=== PATIENT | male | born 1955 | race Caucasian/White ===

== ENCOUNTER 2021-10-09 01:02 | Inpatient (IN) ==
[2021-10-09] MEDS ORDERED: Lactated Ringers 1000 ml BAG 1,000 ML IV ONE (01:30)
[2021-10-09 01:43] LABS: Hematocrit 40 % (42-52); Hemoglobin 13.5 g/dL (14.0-18.0); Mean Corpuscular HGB Conc 34 g/dL (31-36); Mean Corpuscular Hemoglobin 29 pg (27-31); Mean Corpuscular Volume 86 fL (80-94); Mean Platelet Volume 7.7 fL (7.4-10.4); Platelet Count 268 10^3/uL (150-450); Red Blood Count 4.65 10^6 /uL (4.18-5.48); Red Cell Distribution Width 14 % (10-15); White Blood Count 19.6 10^3/uL (3.5-10.8)
[2021-10-09 01:49] LABS: ABS Basophils 0.1 10^3/ul (0-0.2); ABS Lymphocytes 0.5 10^3/ul (1.0-4.8); ABS Monocytes 1.6 10^3/ul (0-0.8); ABS Neutrophils 17.5 10^3/ul (1.5-7.7); Eosinophil % 0.1 %; Lymphocyte % 2.6 %
[2021-10-09 02:21] LABS: Albumin 3.4 g/dL (3.2-5.2); Albumin/Globulin Ratio 1.3 (1-3); Calcium 9.2 mg/dL (8.6-10.3); Globulin 2.7 g/dL (2-4); Magnesium 2.4 mg/dL (1.9-2.7); Total Bilirubin 1.1 mg/dL (0.2-1.0); Total Protein 6.1 g/dL (6.4-8.9)
[2021-10-09 04:09] LABS: High Sensitivity Troponin 1 Hr 8 pg/mL (<20)
[2021-10-09 04:54] LABS: Urine Appearance Cloudy; Urine Bilirubin Negative (Negative); Urine Blood 3+ (Negative); Urine Color Yellow; Urine Glucose Negative (Negative); Urine Ketones Negative (Negative); Urine Nitrite Negative (Negative); Urine Protein 1+(30 mg/dL) (Negative); Urine Urobilinogen Negative (Negative)
[2021-10-09 04:58] LABS: Urine Bacteria 1+ (Absent); Urine Red Blood Cell 3+(>10/hpf) (Absent); Urine White Blood Cell 2+(11-20/hpf) (Absent)
[2021-10-09] MEDS ORDERED: Levofloxacin 750 MG IVPREMIX 750 MG/150 ML BAG IVPB ONE (05:08)
[2021-10-09] MEDS ORDERED: Iohexol 300 (CONTRAST) 10 ML SDV IV ONE (12:11)
[2021-10-09] MEDS ORDERED: cefTRIAXone 1 gm/50 mL D5W 1 GM/50 ML BAG IV ONE (18:30)
[2021-10-09] MEDS: NS 0.9% 1000 ml BAG 1,000 ML IV SCH (20:36)
[2021-10-10] MEDS: NS 0.9% 1000 ml BAG 1,000 ML IV SCH ×2 (03:59→23:18)
[2021-10-10 06:31] LABS: ABS Basophils 0.1 10^3/ul (0-0.2); ABS Eosinophils 0.1 10^3/ul (0-0.6); ABS Lymphocytes 1.2 10^3/ul (1.0-4.8); ABS Monocytes 1.2 10^3/ul (0-0.8); ABS Neutrophils 10.2 10^3/ul (1.5-7.7); Eosinophil % 0.7 %; Hematocrit 36 % (42-52); Hemoglobin 12.2 g/dL (14.0-18.0); Lymphocyte % 9.3 %; Mean Corpuscular HGB Conc 34 g/dL (31-36); Mean Corpuscular Hemoglobin 30 pg (27-31); Mean Corpuscular Volume 88 fL (80-94); Mean Platelet Volume 7.8 fL (7.4-10.4); Platelet Count 253 10^3/uL (150-450); Red Blood Count 4.13 10^6 /uL (4.18-5.48); Red Cell Distribution Width 14 % (10-15); White Blood Count 12.7 10^3/uL (3.5-10.8)
[2021-10-10 07:13] LABS: Calcium 8.4 mg/dL (8.6-10.3); Potassium 4.2 mmol/L (3.5-5.0)
[2021-10-10 15:02] LABS: TSH Ultra Thyroid Stim Horm 0.49 mcIU/mL (0.34-5.60)
[2021-10-10] MEDS: cefTRIAXone 1 gm/50 mL D5W 1 GM/50 ML BAG IV SCH (20:10)
[2021-10-11 05:44] LABS: ABS Basophils 0.1 10^3/ul (0-0.2); ABS Eosinophils 0.2 10^3/ul (0-0.6); ABS Lymphocytes 1.2 10^3/ul (1.0-4.8); ABS Monocytes 0.9 10^3/ul (0-0.8); ABS Neutrophils 7.9 10^3/ul (1.5-7.7); Hematocrit 30 % (42-52); Hemoglobin 10.3 g/dL (14.0-18.0); Lymphocyte % 11.4 %; Mean Corpuscular HGB Conc 34 g/dL (31-36); Mean Corpuscular Hemoglobin 30 pg (27-31); Mean Corpuscular Volume 88 fL (80-94); Mean Platelet Volume 7.8 fL (7.4-10.4); Platelet Count 224 10^3/uL (150-450); Red Blood Count 3.43 10^6 /uL (4.18-5.48); Red Cell Distribution Width 14 % (10-15); White Blood Count 10.3 10^3/uL (3.5-10.8)
[2021-10-11] MEDS: NS 0.9% 1000 ml BAG 1,000 ML IV SCH (05:55)
[2021-10-11 06:19] LABS: Calcium 7.9 mg/dL (8.6-10.3); Potassium 3.7 mmol/L (3.5-5.0); eGFR CKD-EPI 103.3 (>60)
[2021-10-11 12:25] LABS: Albumin 2.5 g/dL (3.2-5.2); Albumin/Globulin Ratio 1.3 (1-3); Total Bilirubin 0.5 mg/dL (0.2-1.0); Total Protein 4.5 g/dL (6.4-8.9)
[2021-10-11] MEDS ORDERED: Perflutren Lipid Microsphere 3 ML VIAL ONE (14:32)
[2021-10-11 18:18] LABS: Hematocrit 31 % (42-52)
[2021-10-11] MEDS: cefTRIAXone 1 gm/50 mL D5W 1 GM/50 ML BAG IV SCH (20:00)
[2021-10-12 07:03] LABS: ABS Basophils 0.1 10^3/ul (0-0.2); ABS Eosinophils 0.2 10^3/ul (0-0.6); ABS Lymphocytes 1.1 10^3/ul (1.0-4.8); ABS Monocytes 0.8 10^3/ul (0-0.8); ABS Neutrophils 7.5 10^3/ul (1.5-7.7); Eosinophil % 1.9 %; Hematocrit 29 % (42-52); Lymphocyte % 11.9 %; Mean Corpuscular HGB Conc 35 g/dL (31-36); Mean Corpuscular Hemoglobin 30 pg (27-31); Mean Corpuscular Volume 87 fL (80-94); Nucleated Red Blood Cells % 0.1; Platelet Count 217 10^3/uL (150-450); Red Blood Count 3.34 10^6 /uL (4.18-5.48); Red Cell Distribution Width 13 % (10-15); White Blood Count 9.7 10^3/uL (3.5-10.8)
[2021-10-12 07:32] LABS: Calcium 7.9 mg/dL (8.6-10.3); Magnesium 1.7 mg/dL (1.9-2.7); Potassium 3.7 mmol/L (3.5-5.0); eGFR CKD-EPI 111.9 (>60)
[2021-10-12 07:49] LABS: Ferritin 319.2 ng/mL (24-336)
[2021-10-12] MEDS: Calcium/Vitamin D TAB 250/125 TAB PO SCH ×2 (09:37→21:33)
[2021-10-12 10:05] LABS: PSA Screening Total 51.286 ng/mL (0-4.000)
[2021-10-12 10:47] LABS: C Reactive Protein 8.95 mg/L (<8.01)
[2021-10-12 10:47] LABS: C Reactive Protein 42.13 mg/L (<8.01)
[2021-10-12 12:31] LABS: Rapid COVID-19 Molecular Undetected (Undetected)
[2021-10-13 04:54] LABS: Anaplasma phagocytophilum Negative (Negative); B. miyamotoi PCR, B Negative (Negative); Babesia divergens/MO-1 Negative (Negative); Babesia ducani Negative (Negative); Ehrlichia chaffeensis Negative (Negative); Ehrlichia ewingii/canis Negative (Negative); Ehrlichia muris eauclairensis Negative (Negative)
[2021-10-13 06:29] VITALS: BP 115/78
[2021-10-13] MEDS: Calcium/Vitamin D TAB 250/125 TAB PO SCH (08:55)
== END 2021-10-13 14:00 | DRG 466 ==
LOC: ED 01:02 → EDHOLD 13:07 → SUATTDRO 13:07 → MED 18:17
PROVIDERS: ADMIT Internal Medicine; ATTEND Internal Medicine

== ENCOUNTER 2021-10-15 17:48 | Inpatient (IN) ==
[2021-10-15 19:01] LABS: Hematocrit 28 % (42-52); Hemoglobin 9.3 g/dL (14.0-18.0); Mean Corpuscular HGB Conc 33 g/dL (31-36); Mean Corpuscular Hemoglobin 29 pg (27-31); Mean Corpuscular Volume 87 fL (80-94); Mean Platelet Volume 7.5 fL (7.4-10.4); Platelet Count 348 10^3/uL (150-450); Red Blood Count 3.23 10^6 /uL (4.18-5.48); Red Cell Distribution Width 14 % (10-15); White Blood Count 17.6 10^3/uL (3.5-10.8)
[2021-10-15 19:09] LABS: ABS Eosinophils 0.3 10^3/ul (0-0.6); ABS Lymphocytes 1.5 10^3/ul (1.0-4.8); ABS Monocytes 1.1 10^3/ul (0-0.8); ABS Neutrophils 14.8 10^3/ul (1.5-7.7); Eosinophil % 1.6 %; Lymphocyte % 8.3 %
[2021-10-15 19:40] LABS: Albumin 3.2 g/dL (3.2-5.2); Albumin/Globulin Ratio 1.6 (1-3); Calcium 8.5 mg/dL (8.6-10.3); Potassium 4.2 mmol/L (3.5-5.0); Total Bilirubin 0.6 mg/dL (0.2-1.0); Total Protein 5.2 g/dL (6.4-8.9); eGFR CKD-EPI 99.2 (>60)
[2021-10-15 20:20] LABS: Urine Appearance Clear; Urine Bilirubin Negative (Negative); Urine Blood 2+ (Negative); Urine Color Yellow; Urine Glucose Negative (Negative); Urine Ketones Negative (Negative); Urine Nitrite Negative (Negative); Urine Protein Negative (Negative); Urine Specific Gravity 1.023 (1.002-1.030); Urine Urobilinogen Negative (Negative)
[2021-10-15 20:27] LABS: Urine Bacteria Absent (Absent); Urine Red Blood Cell 1+(3-5/hpf) (Absent); Urine White Blood Cell Absent (Absent)
[2021-10-15] MEDS ORDERED: Iohexol 350 (CONTRAST) 500 ML MDV IV ONE (20:58)
[2021-10-16] MEDS: NS 0.9% 1000 ml BAG 1,000 ML IV SCH ×2 (00:39→17:31)
[2021-10-16] MEDS ORDERED: Pantoprazole VIAL 40 MG VIAL IV ONE (02:48)
[2021-10-16 05:25] LABS: ABS Basophils 0.1 10^3/ul (0-0.2); ABS Eosinophils 0.3 10^3/ul (0-0.6); ABS Lymphocytes 1.4 10^3/ul (1.0-4.8); ABS Monocytes 0.9 10^3/ul (0-0.8); ABS Neutrophils 11.4 10^3/ul (1.5-7.7); Eosinophil % 2.1 %; Hematocrit 26 % (42-52); Hemoglobin 8.9 g/dL (14.0-18.0); Mean Corpuscular HGB Conc 35 g/dL (31-36); Mean Corpuscular Hemoglobin 30 pg (27-31); Mean Corpuscular Volume 87 fL (80-94); Mean Platelet Volume 7.2 fL (7.4-10.4); Nucleated Red Blood Cells % 0.1; Platelet Count 319 10^3/uL (150-450); Red Blood Count 2.96 10^6 /uL (4.18-5.48); Red Cell Distribution Width 14 % (10-15)
[2021-10-16 06:17] LABS: Albumin 2.7 g/dL (3.2-5.2); Albumin/Globulin Ratio 1.4 (1-3); Potassium 3.9 mmol/L (3.5-5.0); Total Bilirubin 0.6 mg/dL (0.2-1.0); Total Protein 4.7 g/dL (6.4-8.9); eGFR CKD-EPI 104.3 (>60)
[2021-10-16] MEDS ORDERED: Pantoprazole VIAL 40 MG VIAL IV SCH (09:00)
[2021-10-16] MEDS: KCL 20 MEQ/100 ML IVPREMIX 20 MEQ/100 ML BAG IV SCH ×2 (09:41→12:14)
[2021-10-16] MEDS ORDERED: Midazolam 10 mg/10 ml VIAL 1 mg/ml 10 ml VIAL (10 mg) ONE (15:00)
[2021-10-16] MEDS ORDERED: fentaNYL 100 mcg/2 ml 50 MCG/ML VIAL ONE (15:00)
[2021-10-16] MEDS ORDERED: Lactated Ringers 1000 ml BAG 1,000 ML IV ONE (20:19)
[2021-10-16 20:36] LABS: ABS Basophils 0.1 10^3/ul (0-0.2); ABS Eosinophils 0.3 10^3/ul (0-0.6); ABS Lymphocytes 1.4 10^3/ul (1.0-4.8); ABS Monocytes 0.9 10^3/ul (0-0.8); ABS Neutrophils 9.4 10^3/ul (1.5-7.7); Eosinophil % 2.5 %; Hematocrit 27 % (42-52); Hemoglobin 8.9 g/dL (14.0-18.0); Lymphocyte % 11.8 %; Mean Corpuscular HGB Conc 33 g/dL (31-36); Mean Corpuscular Hemoglobin 29 pg (27-31); Mean Corpuscular Volume 89 fL (80-94); Platelet Count 333 10^3/uL (150-450); Red Blood Count 3.06 10^6 /uL (4.18-5.48); Red Cell Distribution Width 14 % (10-15)
[2021-10-16] MEDS: Pantoprazole 80 mg in NS BAG 80 MG/250 ML BAG IV SCH (20:43)
[2021-10-16 21:18] LABS: Calcium 8.1 mg/dL (8.6-10.3); Magnesium 1.9 mg/dL (1.9-2.7); Potassium 3.9 mmol/L (3.5-5.0); eGFR CKD-EPI 103.8 (>60)
[2021-10-17] MEDS: Pantoprazole 80 mg in NS BAG 80 MG/250 ML BAG IV SCH ×4 (05:47→21:31)
[2021-10-17] MEDS ORDERED: Pantoprazole 80 mg in NS BAG 80 MG/250 ML BAG IV SCH (06:00)
[2021-10-17 07:23] LABS: ABS Basophils 0.1 10^3/ul (0-0.2); ABS Eosinophils 0.3 10^3/ul (0-0.6); ABS Lymphocytes 1.1 10^3/ul (1.0-4.8); ABS Monocytes 0.8 10^3/ul (0-0.8); ABS Neutrophils 7.2 10^3/ul (1.5-7.7); Hematocrit 27 % (42-52); Hemoglobin 8.8 g/dL (14.0-18.0); Mean Corpuscular HGB Conc 33 g/dL (31-36); Mean Corpuscular Hemoglobin 30 pg (27-31); Mean Corpuscular Volume 89 fL (80-94); Mean Platelet Volume 7.1 fL (7.4-10.4); Platelet Count 298 10^3/uL (150-450); Red Blood Count 2.98 10^6 /uL (4.18-5.48); Red Cell Distribution Width 14 % (10-15); White Blood Count 9.5 10^3/uL (3.5-10.8)
[2021-10-17 07:49] LABS: Calcium 8.1 mg/dL (8.6-10.3); Potassium 3.9 mmol/L (3.5-5.0); eGFR CKD-EPI 104.3 (>60)
[2021-10-18] MEDS: Pantoprazole 80 mg in NS BAG 80 MG/250 ML BAG IV SCH ×2 (03:22→14:27)
[2021-10-18 07:55] LABS: ABS Basophils 0.1 10^3/ul (0-0.2); ABS Eosinophils 0.2 10^3/ul (0-0.6); ABS Lymphocytes 0.8 10^3/ul (1.0-4.8); ABS Monocytes 0.7 10^3/ul (0-0.8); ABS Neutrophils 6.4 10^3/ul (1.5-7.7); Eosinophil % 2.6 %; Hematocrit 25 % (42-52); Hemoglobin 8.4 g/dL (14.0-18.0); Lymphocyte % 10.3 %; Mean Corpuscular HGB Conc 34 g/dL (31-36); Mean Corpuscular Hemoglobin 30 pg (27-31); Mean Corpuscular Volume 88 fL (80-94); Mean Platelet Volume 7.3 fL (7.4-10.4); Platelet Count 273 10^3/uL (150-450); Red Blood Count 2.78 10^6 /uL (4.18-5.48); Red Cell Distribution Width 14 % (10-15); White Blood Count 8.2 10^3/uL (3.5-10.8)
[2021-10-18 08:24] LABS: Calcium 8.2 mg/dL (8.6-10.3); Potassium 4.2 mmol/L (3.5-5.0)
[2021-10-18] MEDS: Pantoprazole VIAL 40 MG VIAL IV SCH (20:19)
[2021-10-18] MEDS: Nystatin TOP POWDER 15 GM BTL TOPICAL SCH (21:00)
[2021-10-19 08:20] LABS: ABS Basophils 0.1 10^3/ul (0-0.2); ABS Eosinophils 0.2 10^3/ul (0-0.6); ABS Monocytes 0.7 10^3/ul (0-0.8); ABS Neutrophils 5.4 10^3/ul (1.5-7.7); Eosinophil % 3.1 %; Hematocrit 27 % (42-52); Hemoglobin 9.3 g/dL (14.0-18.0); Lymphocyte % 13.9 %; Mean Corpuscular HGB Conc 34 g/dL (31-36); Mean Corpuscular Hemoglobin 30 pg (27-31); Mean Corpuscular Volume 88 fL (80-94); Mean Platelet Volume 6.8 fL (7.4-10.4); Nucleated Red Blood Cells % 0.1; Platelet Count 301 10^3/uL (150-450); Red Blood Count 3.11 10^6 /uL (4.18-5.48); Red Cell Distribution Width 14 % (10-15); White Blood Count 7.4 10^3/uL (3.5-10.8)
[2021-10-19 08:50] LABS: Calcium 8.5 mg/dL (8.6-10.3)
[2021-10-19] MEDS: Pantoprazole VIAL 40 MG VIAL IV SCH ×2 (09:31→20:48)
[2021-10-19] MEDS: Nystatin TOP POWDER 15 GM BTL TOPICAL SCH ×3 (09:32→20:56)
[2021-10-19] MEDS ORDERED: Magnesium Hydroxide LIQ 30 ML UDC PO PRN (10:14)
[2021-10-19] MEDS ORDERED: Senna TAB 8.6 mg TAB PO PRN (10:14)
[2021-10-19] MEDS: Polyethylene Glycol 3350 17 GM PACKET PO SCH (14:12)
[2021-10-19] MEDS ORDERED: Metoprolol Tartrate 5 mg VIAL 5 ml VIAL (1 mg/ml) IV ONE (15:54)
[2021-10-20 04:46] LABS: ABS Basophils 0.1 10^3/ul (0-0.2); ABS Eosinophils 0.3 10^3/ul (0-0.6); ABS Lymphocytes 1.5 10^3/ul (1.0-4.8); ABS Monocytes 0.6 10^3/ul (0-0.8); ABS Neutrophils 4.7 10^3/ul (1.5-7.7); Eosinophil % 3.9 %; Hematocrit 24 % (42-52); Hemoglobin 8.2 g/dL (14.0-18.0); Lymphocyte % 20.5 %; Mean Corpuscular HGB Conc 34 g/dL (31-36); Mean Corpuscular Hemoglobin 30 pg (27-31); Mean Corpuscular Volume 90 fL (80-94); Mean Platelet Volume 7.1 fL (7.4-10.4); Platelet Count 298 10^3/uL (150-450); Red Blood Count 2.71 10^6 /uL (4.18-5.48); Red Cell Distribution Width 15 % (10-15); White Blood Count 7.1 10^3/uL (3.5-10.8)
[2021-10-20] MEDS ORDERED: Magnesium CITRATE LIQ 300 ML BTL PO ONE (07:34)
[2021-10-20] MEDS: Polyethylene Glycol 3350 17 GM PACKET PO SCH (09:06)
[2021-10-20] MEDS: Pantoprazole VIAL 40 MG VIAL IV SCH (09:08)
[2021-10-20 10:55] VITALS: BP 101/59
[2021-10-20 11:52] LABS: Rapid COVID-19 Molecular Undetected (Undetected)
== END 2021-10-20 14:40 | DRG 241 ==
LOC: ED 17:48 → SUATTDRO 20:36 → EDHOLD 21:16 → MED 23:36 → MEDTELE 10-16 18:55
PROVIDERS: ADMIT Internal Medicine; ATTEND Internal Medicine